=== PATIENT | female | born 1995 | race Two or more races ===

== ENCOUNTER 2024-09-13 18:39 | Emergency (ER) | payer MEDICAID, SELFPAY ==
--- NOTE | 2024-09-13 19:35 | PC.NURSE ---
called for pt from lobby/outside, no answerx1@ 192
--- NOTE | 2024-09-13 19:43 | PC.NURSE ---
called for pt from lobby/outside, no answerx2@ 194
--- NOTE | 2024-09-13 20:01 | PC.NURSE ---
called for pt from lobby/outside, no answerx3 @ 2001
--- NOTE | 2024-09-13 20:22 | PD.EDADDENDU ---
Emergency Room Addendum Addendum Narrative: Patient left before I saw the patient. Alfredo Serrano MD
== END 2024-09-13 20:23 | disposition left against medical advice (07) ==
LOC: SERX 20:40
PROVIDERS: Emergency Provider Emergency Medicine
DX: Z53.21 Procedure and treatment not carried out due to patient leaving prior to being seen by health care provider (principal)

== ENCOUNTER 2025-01-30 15:59 | Emergency (ER) | payer MEDICAID, SELFPAY ==
[2025-01-30 16:26] VITALS: BP 110/70; PULSE 92; RESP 16; TEMP 37.3; O2SAT 99; BMI 20.8
--- NOTE | 2025-01-30 16:30 | XR_ITS ---
Examination: Complete OB ultrasound, less than 14 weeks, transabdominal Date and time of exam: January 30, 2025 1638 hours INDICATIONS: Pelvic pain and vaginal bleeding onset today. Technique: Obstetrical ultrasound images less than 14 weeks performed via transabdominal imaging Findings: Uterus 8.2 cm Intrauterine gestational sac 1.4 cm corresponds to 6 weeks 2 days gestational age No pole. 10 x 19 mm subchorionic hemorrhage Right ovary 2.4 cm arterial flow. Left ovary 3.6 cm arterial flow 23 mm cyst IMPRESSION: Empty intrauterine gestational sac corresponding to 6 weeks 2 days gestational age, no pole, no cardiac activity Recommend transvaginal pelvic sonography follow-up
--- NOTE | 2025-01-30 16:30 | PD.EDRME ---
Rapid Medical Screening Exam RME Arrival date/time: 01/30/25 15:59 29-year-old female with no known medical history presents to the emergency room with a chief complaint of vaginal bleeding and pelvic pain x 3 hours I have greeted and performed a focused initial assessment of this patient. A comprehensive ED assessment and evaluation of the patient, analysis of all test results, and completion of the medical decision making process will be conducted by additional ED providers. Chief Complaint: Vaginal Bleeding Time Seen by Provider: 01/30/25 16:13 Vital signs: Vital Signs Temperature 99.2 F 01/30/25 16:26 Pulse Rate 92 01/30/25 16:26 Respiratory Rate 16 01/30/25 16:26 Blood Pressure 110/70 01/30/25 16:26 Pulse Oximetry (%) 99 01/30/25 16:26 Oxygen Delivery Method Room Air 01/30/25 16:26 Vital signs reviewed by provider: Yes
[2025-01-30 16:48] LABS: Basophils # (Auto) 0.1 Thou/mm3 (0.0-0.2); Basophils % (Auto) 1 % (0-2.5); Eosinophils # (Auto) 0.3 Thou/mm3 (0.0-0.5); Eosinophils % (Auto) 4 % (0-10); Hematocrit 37.7 % (36.0-46.0); Hemoglobin 12.6 g/dL (12.0-16.0); Immature Granulocytes Auto 0.02 Thou/mm3 (0.00-0.00); Lymphocytes # (Auto) 2.7 Thou/mm3 (1.0-4.8); Lymphocytes % (Auto) 32 % (10-50); Mean Corpuscular HGB Conc 33.4 g/dl (31.0-37.0); Mean Corpuscular Hemoglobin 29.6 pg (25.0-35.0); Mean Corpuscular Volume 89 fL (80-100); Monocytes # (Auto) 0.6 Thou/mm3 (0.0-0.8); Monocytes % (Auto) 7 % (0-12); Neutrophils # (Auto) 4.8 Thou/mm3 (1.8-7.7); Neutrophils % (Auto) 57 % (37-80); Nucleated Red Blood Cell # 0.00 Thou/mm3 (0.00-0.00); Nucleated Red Blood Cell % 0 /100 WBC (0); Platelet Count 317 Thou/mm3 (140-440); RDW Standard Deviation 46.5 fL (36.4-46.3); Red Blood Count 4.26 Miln/mm3 (4.00-5.20); White Blood Count 8.4 Thou/mm3 (3.6-11.0)
[2025-01-30 17:16] LABS: Alanine Aminotransferase 13 U/L (10-49); Albumin, Serum 4.5 gm/dL (3.5-5.0); Albumin/Globulin Ratio 2.1 (1.2-2.2); Alkaline Phosphatase 66 U/L (46-116); Anion Gap 10 (7-16); Aspartate Amino Transferase 21 U/L (0-34); BUN/Creatinine Ratio 13 Ratio (12-20); Bilirubin,Total 0.2 mg/dL (0.3-1.2); Blood Urea Nitrogen 9 mg/dL (9-23); Calcium 9.8 mg/dL (8.3-10.6); Calcium (Corrected) 9.8 mg/dL (8.5-10.1); Carbon Dioxide 24.8 mMol/L (20.0-31.0); Chloride 106 mMol/L (98-107); Creatinine (Component) 0.7 mg/dL (0.6-1.3); Estimated Creatinine Clearance 107.4 mL/min (>60); Globulin 2.1 gm/dL (2.3-3.5); Glucose 85 mg/dL (74-106); Osmolality,Calculated 278 (275-295); Potassium 3.9 mMol/L (3.4-5.1); Sodium 141 mMol/L (136-145); Total Protein 6.6 gm/dL (5.7-8.2); eGFR > 60 See Note
[2025-01-30 17:24] LABS: Collection Type, Urine Clean Catch
[2025-01-30 17:35] LABS: Bacteria,Urine Rare; Bilirubin,Urine Negative (Negative); Blood,Urine 3+ (Negative); Clarity,Urine Clear (Clear/Hazy); Color,Urine Lt-Yellow (Lt Yel-Yel); Glucose, Urine Negative (Negative); Ketones,Urine Negative (Negative); Leukocyte Esterase,Urine Negative (Negative); Nitrite,Urine Negative (Negative); PH,Urine 6.0 (5.0-7.0); Protein,Urine Negative (Neg - Trace); RBC,Urine 21 /hpf (0-3); Specific Gravity,Urine 1.023 (1.001-1.035); Squamous Epithelial Cell,Urine < 1 /hpf (0-5); Urobilinogen,Urine Negative mg/dL (0.0-1.0); WBC,Urine 2 /hpf (0-5)
[2025-01-30 17:50] LABS: Beta HCG,Quantitative 30232 mIU/mL (<5.0)
--- NOTE | 2025-01-30 18:24 | PD.EDADULT ---
ED General RME/HPI General Chief complaint: Vaginal Bleeding Stated complaint: 5 weeks OB, vaginal bleeding Time Seen by Provider: 01/30/25 16:13 Arrival date/time: 01/30/25 15:59 CC: Vaginal bleeding without abdominal pain or back pain HPI onset 215 this afternoon. Patient found out she was several days ago. Patient is a G3, P2 with spotting at this point in time. Denies any painful urination bloody urination diarrhea abdominal pain or back pain. RME / HPI RME / HPI narrative: 01/30/25 15:59 29-year-old female with no known medical history presents to the emergency room with a chief complaint of vaginal bleeding and pelvic pain x 3 hours I have greeted and performed a focused initial assessment of this patient. A comprehensive ED assessment and evaluation of the patient, analysis of all test results, and completion of the medical decision making process will be conducted by additional ED providers. Related Data Home Medications ?Medication ?Instructions ?Recorded ?Confirmed vitamins no.115-iron 29 1 tab PO QDAY 07/18/20 07/18/20 mg-folic acid 1 mg chewable tablet ( 19) albuterol sulfate 90 mcg/actuation inhalation 07/19/20 aerosol inhaler (Ventolin HFA) Previous Rx's ?Medication ?Instructions ?Recorded ferrous sulfate 324 mg (65 mg 324 mg PO BID #90 tabs 07/18/20 iron) tablet,delayed release ibuprofen 800 mg tablet 800 mg PO Q8H PRN pain #30 tabs 10/29/21 Allergies Allergy/AdvReac Type Severity Reaction Status Date / Time No Known Drug Allergies Allergy Verified 01/30/25 16:05 Review of Systems Review of Systems Narrative Review of Systems: GEN: No fever, no chills, no weight loss EYES: No discharge, no visual changes, no pain HEENT: No ear pain, no congestion, no sore throat PULM: No shortness of breath, no cough, no congestion CV: No chest pain, no dyspnea on exertion, no palpitations GI: No nausea, no vomiting, no diarrhea, no pain, no constipation : No frequency, no urgency, no dysuria MUSC/SKEL: No joint pain, no back pain SKIN: No rash PSYCH: No hallucinations, no depression HEME/LYMPH: No easy bleeding or bruising tendencies NEURO: No weakness, no headache Past Medical History Past Medical History NEUROLOGIC: Negative Neurological Disorders or Seizures CARDIAC: Negative Cardiac Disorders or Congestive Heart Failure RESPIRATORY: Positive Asthma (ALBUTEROL USE ABOUT 30 DAYS AGO); Negative Chronic Obstructive Pulmonary Disease (COPD) GASTROINTESTINAL: Negative Gastrointestinal Disorders, Hepatitis or Colorectal Cancer GENITOURINARY: Negative Genitourinary Disorders, Renal Disease or Prostate Cancer REPRODUCTIVE: Negative Breast Cancer or Testicular Cancer MUSCULOSKELETAL: Negative Bone Cancer ENDOCRINE: Negative Diabetes Mellitus Type 1 or Diabetes Mellitus Type 2 HEMATOLOGIC: Positive Anemia (with first pregnacy) PSYCHO/SOCIAL: Negative Depression or Anxiety OTHER HISTORY: Negative Hospitalization, Autoimmune Disease, Down Syndrome, Developmental Delay, Shingles, Falls, Blood Transfusions, Blood Transfusion Reaction, Anesthesia Reactions, Organ Transplant, Chemotherapy, Radiation Therapy, Hyperbaric Therapy, MRSA, VRSA, Vancomycin-Resistant Enterococci, Human Immunodeficiency Virus (HIV), Chicken Pox, Measles, Mumps, Rubella ([place] Measles), Pertussis, Clostridium Difficile, Cancer, Breast Cancer, Cervical Cancer, Colorectal Cancer, Lung Cancer, Ovarian Cancer, Prostate Cancer or Testicular Cancer Family History FAMILY HISTORY: Positive Family Cardiac Disorders (FATHER HTN); Negative Family Psychiatric Problems, Family Respiratory Disorders, Family Gastrointestinal Problems, Family Cancer, Family Surgery or Family Anesthesia Reaction Surgical History SURGICAL: Negative Endocrine Surgery, Abdominal Surgery, Nephrectomy, Section or Organ Transplant Social History SMOKING STATUS: Never smoker SECOND HAND EXPOSURE: No SUBSTANCE USE: does not use ED Exam Narrative Physical exam: [General: Not in any acute distress Head normocephalic HEENT: Within acceptable limits Neck is supple nontender Chest equal chest rise nontender to palpation Respiratory: Clear to auscultation no wheezes crackles or rubs CV: Rate rhythm is regular no murmurs rubs or clicks Abdomen is flat, soft nontender no masses positive bowel sounds all 4 quadrants Back: No CVA tenderness no spinous process tenderness from cervical spine thoracic and lumbar spine Skin: Intact no petechiae rash induration ulceration or crepitus Extremities: Moving all extremity against resistance cap refill less than 2 seconds neurosensory intact Neuro: Awake alert oriented x3 Glascow coma 15 no focal deficits] Course Quality Measures none Orders Category Date Time Status US OB <= 14 weeks fetus Stat Exams 01/30/25 16:30 Completed ABO/RH Type Stat Lab 01/30/25 16:37 Completed Beta HCG,Quantitative Stat Lab 01/30/25 16:37 Completed CBC Stat Lab 01/30/25 16:37 Completed CMP [Comprehensive Metabolic Panel] Stat Lab 01/30/25 16:37 Completed UA [Urinalysis] Stat Lab 01/30/25 17:18 Completed Vital Signs Vital signs: Vital Signs Temperature 99.2 F 01/30/25 16:26 Pulse Rate 92 01/30/25 16:26 Respiratory Rate 16 01/30/25 16:26 Blood Pressure 110/70 01/30/25 16:26 Pulse Oximetry (%) 99 01/30/25 16:26 Oxygen Delivery Method Room Air 01/30/25 16:26 Discharge Plan Plan Patient Disposition: HOME (Self Care) Prescriptions/Referrals Prescriptions/Med Rec: No Action 19 29 mg iron- 1 mg Tablet,Chewable 1 tab PO QDAY ferrous sulfate 324 mg (65 mg iron) tablet,delayed release (DR/EC) 324 mg PO BID Qty: 90 0RF albuterol sulfate [Ventolin HFA] 90 mcg/actuation HFA aerosol inhaler INHALATION ibuprofen 800 mg tablet 800 mg PO Q8H PRN (Reason: pain) Qty: 30 0RF Referrals: Keli Rodney PA-C [Primary Care Provider] - In 1 week Problem List Clinical Impression: Miscarriage, threatened, early Patient/Caregiver Discharge Instructions Education Materials: ED Possible Miscarriage ... Additional Instructions: Ultrasound shows intrauterine pregnancies at 6 weeks and 2 days without any cardiac activity, hCG at 30,000 232. Suspect this is an early miscarriage follow-up with your primary care or OB or return to the emergency room in 4 to 5 days for recheck of the quantitative hCG. If there is a worsening in super of symptoms including heavy bleeding abdominal pain or low back pain return immediately to the emergency room for reevaluation. Print Language: Danish Stand Alone Forms: Neela Award Info., Work/School Release, Patient Portal Info Letter PA/SOLO Supervising Physician PA/SOLO Supervising Physician: Santos Villa ENP [facility] Clinical Information Provided by patient Medical Records Reviewed [facility] EKG EKG not done Lab Interpretation Labs: interpreted by nj Lab(s) interpretation(s): CBC shows no acute leukocytosis anemia thrombocytopenia CMP shows no significant electrolyte imbalances renal impairment transaminitis or T. bili elevation. Beta-hCG at 30,232. Urine 3+ blood no leukocyte esterases no bacteria ABO Rh is O+ Imaging Imaging interpretation: interpreted by me Provider imaging interpretation(s): Ultrasound shows intrauterine at 6 weeks 2 days no activity Diagnosis Differential diagnosis: Miscarriage early ectopic Dispositon Disposition: Discharge Home
== END 2025-01-30 18:59 | disposition home or self-care (01) ==
PROVIDERS: Nurse Practitioner Family; Emergency Provider Emergency Medicine; PCP Physician Assistant
DX: O20.0 Threatened abortion (principal); Z3A.01 Less than 8 weeks gestation of pregnancy
CPT/HCPCS: 36415; 76801; 80053; 81001; 84702; 85025; 86900; 86901; 99283